=== PATIENT | female | born 2000 | race Caucasian/White ===

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

== ENCOUNTER 2020-03-02 11:06 | Inpatient (IN) | payer BC, MEDICAID, SELFPAY ==
[2020-03-02] VITALS (70 sets, daily range): BP systolic 88–172; BP diastolic 50–98; PULSE 90–137; RESP 16–22; TEMP 36–37.5; O2SAT 98–100; BMI 41.9
[2020-03-02] MEDS: lactated ringers 1,000 ML 999 ML IV ×2 (12:10→13:07)
[2020-03-02 12:38] LABS: Basophils # 0.1 10^3/uL (0.0-0.1); Basophils % 0.4 %; Eosinophils % 0.1 %; Hematocrit 42.8 % (37.0-47.0); Lymphocytes % 18.2 %; Mean Corpuscular HGB Conc 32.7 g/dL (30.0-36.0); Mean Corpuscular Hemoglobin 28.7 pg (28.0-34.0); Mean Corpuscular Volume 87.7 fL (81-99); Mean Platelet Volume 12.1 fL (7.4-10.4); Monocytes % 6.1 %; Neutrophils # 12.16 10^3/uL (1.8-8.0); Neutrophils % 74.8 %; Nucleated Red Blood Cells % 0 %; Platelet Count 262 10^3/cmm (130-400); Red Blood Count 4.88 10^6/uL (4.1-5.3); Red Cell Distribution Width 12.8 % (12.1-15.1); White Blood Count 16.3 10^3/uL (4.5-13.0)
--- NOTE | 2020-03-02 12:59 | P.ANESASSM_ITS ---
Pre-Anesthetic Assessment Pre-Anesthetic Assessment: Height/Weight: Height 1.66 m Weight 116.12 kg Temp Pulse BP 96.8 F L 101 H 136/84 03/02/20 11:31 03/02/20 12:51 03/02/20 12:51 Preop Diagnosis: labor Proposed Procedure: epidural Was Beta Angelica taken within 24 hours: N/A Last Intake: 19:00 Social: Social History: No alcohol and No tobacco Exam: Pre-Anes Outpt Exam: alert, oriented x 3, clear to auscultation bilaterally and regular rate & rhythm Airway: Submandibular: WNL Cervical ROM: WNL MP: 2 Dentition: Full Pulmonary: Pulmonary: None reported CV/HEM: CV/HEM: None reported : : None reported Hepatic: Hepatic: None reported GI: GI: GERD (with ) Metabolic: Metabolic: Morbid obesity Musc/skel: Musc/skel: None reported Neuropsych: Neuropsych: None reported Anesthetic Plan: ASA status: 2 Anesthesia: Regional (specify below) (epidural) Risk of > 500 ml blood loss (7ml/kg in children): No Meds/Allergies Current Medications: Current Medications Generic Name Dose Route Start Last Admin Trade Name Freq PRN Reason Stop Dose Admin Lactated Ringer's 1,000 mls @ 999 m ls/hr 03/02/20 11:46 03/02/20 12:10 Lactated Ringers IV 999 mls/hr .Q1H1M PRN Administration See label comment s PFSH Anesthesia PFSH: Social History (Updated 04/24/19 @ 12:55 by Yue Johnson LPN) Smoking and tobacco status: never smoked Alcohol intake: never Female Reproductive History: : 1 Data Anesthesia CBC & Chem 7: 03/02/20 12:05 Other Labs: Laboratory Results - last 48 hr 03/02/20 12:05 WBC 16.3 H RBC 4.88 Hgb 14.0 Hct 42.8 MCV 87.7 MCH 28.7 MCHC 32.7 RDW 12.8 Plt Count 262 MPV 12.1 H Neut % (Auto) 74.8 Lymph % (Auto) 18.2 Guthrie % (Auto) 6.1 Eos % (Auto) 0.1 Baso % (Auto) 0.4 Neut # (Auto) 12.16 H Lymph # (Auto) 3.0 Guthrie # (Auto) 1.0 H Eos # (Auto) 0.0 Baso # (Auto) 0.1 Nucleated RBC % (auto) 0 Nucleated RBCs # 0.0 Cardiac Studies: No Data to Display
--- NOTE | 2020-03-02 13:28 | ANES.PROC ---
Anesthesia Procedures Procedure/Date: 03/02/20 Epidural: Time Out Performed: Yes Consents Signed: Procedure Consent and NPO Consent Consent: requested by attending/covering physician, from patient, risks and benefits reviewed and patient agrees to proceed Lumbar Level: L3-L4 Epidural position: sitting Epidural procedure: sterile prep of area (betadine), 1% lidocaine to numb the area (3ml), 18 g needle, neg for paresthesia, test dose given, 1.5% xylocaine 1:200k epi (5ml), 0.2% Ropivacaine bolus ml (5ml), placed PCEA, no systemic response, sterile dressing applied, L.U.D. no apparent complications and 0.2% Ropiavacaine @ mls/hr (13ml/hr)
[2020-03-02] MEDS: dextrose 5%-lactated ringers 1,000 ML 125 ML IV (17:27)
[2020-03-02] MEDS: alum-mag-hydroxide-sime 30 mL UDC PO (18:14)
[2020-03-02] MEDS: oxytocin 30 UNIT/500 ML BAG 600 UNIT IV (19:25)
--- NOTE | 2020-03-02 20:32 | PM.DELIVERY ---
Delivery Note: Date of delivery: March 02, 2020 Pre-delivery diagnoses: 19-year-old 1 at 40 weeks estimated gestational age presenting in active labor Post-delivery diagnoses: Status post spontaneous vaginal delivery. Meconium was noted Procedure: Spontaneous vaginal delivery Op report anesthesia: Epidural Delivering Physician: Zhao Kiser Estimated blood loss (mL): 250 Delivery: DELIVERY: The patient progressed to complete without difficulty. She delivered a female with a weight of 6 pounds 11 ounces with Apgars of 8, 10. The baby was delivered from the JORDAN position. The baby was then completely delivered and placed on the mother's abdomen. The mouth and nose were suctioned. The cord was then clamped and cut. A nuchal cord x2. Meconium was noted. The placenta and 3 vessel cord were delivered intact shortly thereafter. The perineum and vaginal vault were carefully examined. No significant lacerations were noted. Both the mother and the baby were in stable condition. Post-Delivery Status: Good A&P Assessment and plan (1) 40 weeks gestation of : Status: Acute (2) Spontaneous vaginal delivery: Status: Acute Coding Level of Care Code Acute Medical Service Representative for Chg Fwd Diagnoses 40 weeks gestation of Z3A.40 Spontaneous vaginal delivery O80
[2020-03-02] MEDS: ibuprofen 800 mg tablet PO (21:45)
[2020-03-02] MEDS: lanolin oint 7 gm 1 APPLIC TOPICAL (21:46)
[2020-03-02] MEDS: benzocaine-menthol 78 gm Canister 1 SPRAY TOPICAL (21:47)
[2020-03-03] VITALS (10 sets, daily range): BP systolic 102–123; BP diastolic 50–67; PULSE 84–98; RESP 16; TEMP 36.2–36.7
--- NOTE | 2020-03-03 06:56 | P.DS_ITS ---
Discharge Providers HORSE TREKKING GUIDE Date of Admission: 03/02/20 11:06 Date of Discharge: 03/03/20 Attending Provider at Admission: Zhao Kiser MD Attending Provider at Discharge: Zhao Kiser MD Primary Care Provider: Lan Yeung MD Diagnoses at Discharge Discharge Diagnosis (1) 40 weeks gestation of : Status: Acute (2) Spontaneous vaginal delivery: Status: Acute Reason for Visit Reason for Visit: contractions Hospital Course Hospital Course The patient presented to the hospital in active labor. An amniotomy was performed. Labor was augmented with Pitocin. She then progressed to complete and had an unremarkable vaginal delivery. Her course has been unremarkable. Her bleeding has been minimal. She has breast-fed well. Her pain is been well controlled. Information Peripartum Data: Delivery Method: Vaginal Physical Exam Narrative: EXAM NARRATIVE: The patient is alert. She appears comfortable. Her heart has a regular rate and rhythm with no murmurs appreciated. Lungs are clear to auscultation bilaterally. Her fundus is firm and below the umbilicus. Urinary Catheter Management^: Salomon: Cath Placed During This Visit: yes Reason for Continuing Indwelling Catheter: Required Immobilization for Trauma or Surgery or Anesthesia Urinary Catheter Date of Insertion: 03/02/20 Urinary Catheter Time of Insertion: 13:40 Discharge Data Data Completed and Pending: Pending at discharge Category Date Time Status Hemagram Timed Lab 03/03/20 08:30 Uncollected Labs from last 24 hours 03/02/20 12:05 WBC 16.3 H RBC 4.88 Hgb 14.0 Hct 42.8 MCV 87.7 MCH 28.7 MCHC 32.7 RDW 12.8 Plt Count 262 MPV 12.1 H Neut % (Auto) 74.8 Lymph % (Auto) 18.2 Hamblen % (Auto) 6.1 Eos % (Auto) 0.1 Baso % (Auto) 0.4 Neut # (Auto) 12.16 H Lymph # (Auto) 3.0 Hamblen # (Auto) 1.0 H Eos # (Auto) 0.0 Baso # (Auto) 0.1 Nucleated RBC % (a uto) 0 Nucleated RBCs # 0.0 Vitals: Last Vital Signs Temp 98.1 F 03/03/20 05:31 Pulse 88 03/03/20 05:26 Resp 16 03/02/20 18:37 BP 119/56 03/03/20 05:26 Pulse Ox 100 03/02/20 13:56 Discharge Plan Discharge Patient Disposition: Home Condition: Stable Prescriptions: New ibuprofen 800 mg Tablet 800 mg PO TID Qty: 30 RF: 0 Continued [id number] 1 mg Tablet 1 tab PO DAILY RF: 0 Discontinued doxylamine-pyridoxine (vit B6) [Diclegis] 10-10 mg tablet,delayed release (DR/EC) See Rx Instructions PO .COMPLEX Qty: 60 RF: 0 metoclopramide HCl [Reglan] 10 mg tablet 10 mg PO Q6H PRN (Reason: nausea and vomiting) Qty: 20 RF: 0 Discharge Orders: Discharge Order (Routine); Ordered 03/03/20 Ordered By: Zhao Kiser Referrals: Zhao Kiser MD [Physician] - 6 Weeks Discharge Diet: Usual diet Discharge Activity: Limit activity as instructed Discharge Attestations HORSE TREKKING GUIDE Time Spent in Discharge Care*: less than 30 min Coding Level of Care Code Acute Allocation Analyst for Chg Fwd Diagnoses 40 weeks gestation of Z3A.40 Spontaneous vaginal delivery O80
[2020-03-03] MEDS: alum-mag-hydroxide-sime 30 mL UDC PO (07:18)
[2020-03-03] MEDS: ibuprofen 800 mg tablet PO ×2 (09:35→16:06)
[2020-03-03] MEDS: docusate sodium 100 mg Capsule PO (09:35)
[2020-03-03] MEDS: prenatal vitamin Capsule 1 CAP PO (09:35)
[2020-03-03 10:44] LABS: Hematocrit 34.3 % (37.0-47.0); Hemoglobin 11.1 g/dL (11.5-15.3); Mean Corpuscular HGB Conc 32.4 g/dL (30.0-36.0); Mean Corpuscular Hemoglobin 28.6 pg (28.0-34.0); Mean Corpuscular Volume 88.4 fL (81-99); Mean Platelet Volume 12.2 fL (7.4-10.4); Platelet Count 227 10^3/cmm (130-400); Red Blood Count 3.88 10^6/uL (4.1-5.3); Red Cell Distribution Width 12.9 % (12.1-15.1)
== END 2020-03-03 21:30 | disposition home or self-care (01) | DRG 807 ==
LOC: OPOB 11:06 → OBGYN 11:07
PROVIDERS: Admitting Provider Family Medicine; PCP Family Medicine; Visit Provider Family Medicine
DX: O77.0 Labor and delivery complicated by meconium in amniotic fluid (principal); Z37.0 Single live birth; O69.2XX0 Labor and delivery complicated by other cord entanglement, with compression, not applicable or unspecified; Z3A.40 40 weeks gestation of pregnancy
CPT/HCPCS: 12345; 36415; 51702; 59025; 59409; 85025; 85027; 99211; J2795

== ENCOUNTER 2020-04-19 12:16 | Outpatient (CLI) | payer BC, MEDICAID, SELFPAY | END 2020-04-19 12:17 | disposition home or self-care (01) | LOC: LAB 12:18 | PROVIDERS: PCP Family Medicine; Visit Provider Family Medicine | DX: K52.9 Noninfective gastroenteritis and colitis, unspecified (principal); R10.9 Unspecified abdominal pain | CPT/HCPCS: 87506 ==

== ENCOUNTER 2020-04-21 13:35 | Emergency (ER) | payer BC, MEDICAID, SELFPAY ==
[2020-04-21 13:45] VITALS: BP 152/57; PULSE 78; RESP 18; O2SAT 98; BMI 40.9
--- NOTE | 2020-04-21 14:07 | CTR_ITS ---
PROCEDURE INFORMATION: Exam: CT Abdomen And Pelvis With Contrast Exam date and time: 04/21/2020 6:18 PM Age: 19 years old Clinical indication: Abdominal pain; Generalized; Additional info: 1 month abd pain diffuse TECHNIQUE: Imaging protocol: Computed tomography of the abdomen and pelvis with contrast. Radiation optimization: All CT scans at this facility use at least one of these dose optimization techniques: automated exposure control; mA and/or kV adjustment per patient size (includes targeted exams where dose is matched to clinical indication); or iterative reconstruction. Contrast material: OMNIPAQUE 300; Contrast volume: 95 ml; Contrast route: INTRAVENOUS (IV); COMPARISON: US OB >= 14 weeks fetus [id number] 12/05/2019 8:35 AM RADIATION DOSE METRICS: Total DLP (mGy-cm): 1892.9 FINDINGS: Liver: Normal. No mass. Gallbladder and bile ducts: Normal. No calcified stones. No ductal dilation. Pancreas: Normal. No ductal dilation. Spleen: Normal. No splenomegaly. Adrenal glands: Normal. No mass. Kidneys and ureters: Normal. No hydronephrosis. Stomach and bowel: Colonic constipation is present. Appendix: No evidence of appendicitis. Intraperitoneal space: Unremarkable. No free air. No significant fluid collection. Vasculature: Unremarkable. No abdominal aortic aneurysm. Lymph nodes: Unremarkable. No enlarged lymph nodes. Urinary bladder: Unremarkable as visualized. Reproductive: Unremarkable as visualized. Bones/joints: Chronic defects are present through the bilateral L5 pars interarticularis. Resultant mild grade 1 spondylolisthesis at L5-S1 with moderate bilateral neural foraminal narrowing. There is a minimal disc bulge at the L4-L5 level. Soft tissues: Unremarkable. CT/CT abdomen pelvis w con* [id number] IMPRESSION: Colonic constipation is present. Radiation Dose CTDIVOL = (mGy): DLP = 1892.9 (mGy-cm)
--- NOTE | 2020-04-21 14:07 | XRR_ITS ---
PROCEDURE INFORMATION: Exam: XR Chest Exam date and time: 04/21/2020 2:15 PM Age: 19 years old Clinical indication: Other: Reduced breath sounds TECHNIQUE: Imaging protocol: XR of the chest Views: 1 view. COMPARISON: No relevant prior studies available. FINDINGS: Lungs: Unremarkable. No consolidation. Pleural spaces: Unremarkable. No pleural effusion. No pneumothorax. Heart/Mediastinum: Unremarkable. No cardiomegaly. Bones/joints: Unremarkable. XR/XR chest 1V portable [id number] IMPRESSION: No acute findings.
[2020-04-21] MEDS: sodium chloride 0.9% 1,000 ML 999 ML IV (14:28)
[2020-04-21 14:33] LABS: Basophils # 0.1 10^3/uL (0.0-0.1); Basophils % 0.7 %; Eosinophils # 0.3 10^3/uL (0.0-0.8); Eosinophils % 2.9 %; Hematocrit 40.4 % (37.0-47.0); Hemoglobin 12.8 g/dL (11.5-15.3); Lymphocytes # 3.5 10^3/uL (1.5-6.5); Lymphocytes % 38.9 %; Mean Corpuscular HGB Conc 31.7 g/dL (30.0-36.0); Mean Corpuscular Hemoglobin 27.9 pg (28.0-34.0); Mean Corpuscular Volume 88.2 fL (81-99); Mean Platelet Volume 10.9 fL (7.4-10.4); Monocytes # 0.7 10^3/uL (0.2-0.9); Monocytes % 7.8 %; Neutrophils # 4.39 10^3/uL (1.8-8.0); Neutrophils % 49.6 %; Nucleated Red Blood Cells % 0 %; Platelet Count 246 10^3/cmm (130-400); Red Blood Count 4.58 10^6/uL (4.1-5.3); Red Cell Distribution Width 13.2 % (12.1-15.1); White Blood Count 8.9 10^3/uL (4.5-13.0)
--- NOTE | 2020-04-21 14:33 | W.ED.ABDPA2 ---
HPI - Abdominal Pain General: Chief Complaint: Abdominal Pain Stated Complaint: ABD PAIN/DIARRHEA Time Seen by Provider: 04/21/20 13:49 History of Present Illness: HPI narrative: The patient is a 19-year-old female who comes to the ER complaining of diffuse abdominal pain and lower chest wall pain. Also diarrhea. The symptoms have been on and off for the past month and she has seen her primary care doctor about it who ordered stool testing and the results were not back yet. She was also seen at urgent care and given antibiotics for a potential colitis. She notices no difference since starting the antibiotics. She has no past medical history and had a vaginal delivery in February. Last menstrual period less than a week ago. MD elicited complaint: abdominal pain Pertinent past history: none Pain Consistency: constant Location: Diffuse Severity: moderate Quality: cramping Exacerbating factors: nothing Relieving factors: nothing Associated Symptoms: Reports GI cramping and diarrhea Review of Systems General: Reports: 10 or more systems reviewed and unremarkable except in HPI and below Const: Denies: fatigue Eyes: Denies: change in vision, blurry vision or eye redness ENMT: Denies: throat pain, swelling of lips/tongue, ear or mastoid pain or nasal congestion Card: Denies: chest pain, palpitations, irregular heart rhythm, edema, dyspnea on exertion or orthopnea Resp: Denies: dyspnea, productive cough or non-productive cough GI: Reports: abdominal pain, diarrhea and GI cramping : Denies: flank pain, difficulty voiding, urinary frequency or urinary urgency Musc: Denies: neck pain, back pain, extremity pain, joint pain, joint redness, limited range of motion or muscle weakness Skin/Breast: Denies: rash, pruritus, erythema, skin pain or skin tenderness Neuro: Denies: headache(s), numbness in extremities, weakness in extremities, sensory changes, difficulty walking, dizziness, confusion or Slurred speech present Psych: Denies: anxiety or depression Endo: Denies: polyuria All/Imm: Denies: urticaria, throat swelling or tongue swelling PFSH ED PFSH: Social History Smoking and tobacco status: never smoked Alcohol intake: never Physical Exam Const: COMMON NORMALS: no acute distress, average body habitus, patient oriented x3, no limitations, healthy appearing, alert and well nourished GENERAL APPEARANCE: cooperative, comfortable, well kempt and well developed ORIENTATION/CONSCIOUSNESS: Yes awake, Yes oriented to person, Yes oriented to place and Yes oriented to time HENMT: COMMON NORMALS: normocephalic, external ears normal and Normal external nose present HEAD & SCALP: normal to inspection and normocephalic NOSE: Normal external nose present EXTERNAL EAR: Yes external ears normal MOUTH: Normal oral and palatal mucosa present THROAT: posterior oropharynx normal Eye: COMMON NORMALS: Equal, round and reactive pupils present and EOMs intact bilaterally GENERAL EYE: appearance normal, both eyes and all related structures PUPIL: Yes Equal, round and reactive pupils present Neck/C-Spine: COMMON NORMALS: full ROM, no lymphadenopathy, no meningeal signs and no JVD GENERAL: Yes normal visual inspection Lymph: LYMPHATIC: no lymphadenopathy noted Chest: COMMONS NORMALS: normal inspection of the chest and normal palpation of entire chest wall Resp: COMMON NORMALS: normal respiratory effort, No retractions, No use of accessory muscles, clear to auscultation bilaterally and percussion normal EFFORT & INSPECTION: Yes able to speak in complete sentences AUSCULTATION: clear to auscultation bilaterally PERCUSSION: percussion normal Cardio: COMMON NORMALS: no JVD, regular rate, regular rhythm, S1 normal heart sound present, S2 normal heart sound present and Peripheral pulses 2+ throughout RATE: regular rate RHYTHM: regular rhythm HEART SOUNDS: S1 normal heart sound present and S2 normal heart sound present PERIPHERAL PULSES: Peripheral pulses 2+ throughout GI: COMMON NORMALS: Normal to inspection, nondistended, normoactive bowel sounds present, Soft to palpation, non-tender and no masses INSPECTION: Yes normal to inspection PALPATION: Yes Soft to palpation : COMMON NORMALS: Yes no CVA tenderness BLADDER/KIDNEY EXAM: Yes no CVA tenderness Back/Pelvis: COMMON NORMALS: no CVA tenderness, thoracic and lumbar spine normal to inspection, no thoracic nor lumbar tenderness and thoraco-lumbar ROM normal Extremity: COMMON NORMALS: normal to inspection, full ROM, capillary refill normal, no joint enlargement and no pedal edema GENERAL: Yes normal exam except as noted Neuro: COMMON NORMALS: patient oriented x3, CN's II-XII intact bilaterally, moves all extremities, no focal motor deficits, no sensory deficits noted and gait normal SENSORIUM/ORIENTATION: Yes alert, Yes oriented to person, Yes oriented to place and Yes oriented to time MENINGEAL SIGNS: Yes no meningeal signs Psych: COMMON NORMALS: mental status grossly normal, Normal thought process present, cooperative, normal affect and speech normal APPEARANCE: Yes well kempt ATTITUDE: Yes calm SPEECH: Yes normal speech THOUGHT PROCESS: Normal thought process present Skin: COMMON NORMALS: no rashes or lesions noted GENERAL SKIN EXAM: no rashes or lesions noted Course Vital Signs: Vital signs: Vital Signs Pulse Rate 78 04/21/20 17:00 Respiratory Rate 17 04/21/20 17:00 Blood Pressure 130/58 04/21/20 17:00 Pulse Oximetry 100 04/21/20 17:00 MDM - Abdominal Pain MDM Narrative: Medical decision making narrative: Patient comes to the ER with abdominal pain. Lipase is elevated. She is tolerating oral liquids and foods well. Discharged with Zofran. CT abdomen pelvis normal. Recommended she follow-up with her primary care physician to discuss other possible causes including her medications as well as get an ultrasound of her gallbladder at that time. ER with worsening symptoms Lab Data: Labs: Lab Results 04/21/20 04/21/20 04/21/20 Range/Units 14:20 14:20 15:52 WBC 8.9 (4.5-13.0) 10^3/ uL RBC 4.58 (4.1-5.3) 10^6/u L Hgb 12.8 (11.5-15.3) g/dL Hct 40.4 (37.0-47.0) % MCV 88.2 (81-99) fL MCH 27.9 L (28.0-34.0) pg MCHC 31.7 (30.0-36.0) g/dL RDW 13.2 (12.1-15.1) % Plt Count 246 (130-400) 10^3/c mm MPV 10.9 H (7.4-10.4) fL Neut % (Auto) 49.6 % Lymph % (Auto) 38.9 % Reagan % (Auto) 7.8 % Eos % (Auto) 2.9 % Baso % (Auto) 0.7 % Neut # (Auto) 4.39 (1.8-8.0) 10^3/u L Lymph # (Auto) 3.5 (1.5-6.5) 10^3/u L Reagan # (Auto) 0.7 (0.2-0.9) 10^3/u L Eos # (Auto) 0.3 (0.0-0.8) 10^3/u L Baso # (Auto) 0.1 (0.0-0.1) 10^3/u L Nucleated RBC % (a uto) 0 % Nucleated RBCs # 0.0 /100WBC Sodium 140 (136-145) mmol/L Potassium 4.4 (3.5-5.1) mmol/L Chloride 109 H (98-107) mmol/L Carbon Dioxide 24 (22-29) mmol/L Anion Gap 11.4 (5-19) BUN 21 H (6-20) mg/dL Creatinine 0.8 (0.5-0.9) mg/dL GFR Calculation 92.4 (90-130) mL/min Glucose 82 (65-115) mg/dL Calculated Osmolal ity 292 (285-295) mOsm/k g Calcium 9.3 (8.5-10.5) mg/dL Total Bilirubin 0.2 (0.15-1.2) mg/dL AST 19 (0-32) U/L ALT 22 (0-33) U/L Alkaline Phosphata se 94 (35-105) IU/L Total Protein 6.7 (6.6-8.7) g/dL Albumin 4.1 (3.5-5.2) g/dL Globulin 2.6 (1.3-4.6) g/dL Lipase 150 H (13-60) U/L HCG, Qual Negative (Negative) Urine Color (Yellow) Urine Appearance (CLEAR) Urine pH (5-7) Ur Specific Gravit y (1.005-1.030) Urine Protein (Negative) Urine Glucose (UA) (Normal) Urine Ketones (Negative) Urine Blood (Negative) Urine Nitrate (Negative) Urine Bilirubin (Negative) Prot Sulfosalicyli c Acd (Negative) Urine Urobilinogen (Negative) mg/dL Ur Leukocyte Marixa ase (Negative) Urine RBC (0-2) /hpf Urine WBC (0-5) /hpf Ur Squamous Epith Cells (0-5) /hpf Ur Transition Epit h Cell /hpf Amorphous Sediment Urine Bacteria (NONE) /hpf Urine Mucus /hpf 04/21/20 Range/Units 15:52 WBC (4.5-13.0) 10^3/ uL RBC (4.1-5.3) 10^6/u L Hgb (11.5-15.3) g/dL Hct (37.0-47.0) % MCV (81-99) fL MCH (28.0-34.0) pg MCHC (30.0-36.0) g/dL RDW (12.1-15.1) % Plt Count (130-400) 10^3/c mm MPV (7.4-10.4) fL Neut % (Auto) % Lymph % (Auto) % Reagan % (Auto) % Eos % (Auto) % Baso % (Auto) % Neut # (Auto) (1.8-8.0) 10^3/u L Lymph # (Auto) (1.5-6.5) 10^3/u L Reagan # (Auto) (0.2-0.9) 10^3/u L Eos # (Auto) (0.0-0.8) 10^3/u L Baso # (Auto) (0.0-0.1) 10^3/u L Nucleated RBC % (a uto) % Nucleated RBCs # /100WBC Sodium (136-145) mmol/L Potassium (3.5-5.1) mmol/L Chloride (98-107) mmol/L Carbon Dioxide (22-29) mmol/L Anion Gap (5-19) BUN (6-20) mg/dL Creatinine (0.5-0.9) mg/dL GFR Calculation (90-130) mL/min Glucose (65-115) mg/dL Calculated Osmolal ity (285-295) mOsm/k g Calcium (8.5-10.5) mg/dL Total Bilirubin (0.15-1.2) mg/dL AST (0-32) U/L ALT (0-33) U/L Alkaline Phosphata se (35-105) IU/L Total Protein (6.6-8.7) g/dL Albumin (3.5-5.2) g/dL Globulin (1.3-4.6) g/dL Lipase (13-60) U/L HCG, Qual (Negative) Urine Color Yellow (Yellow) Urine Appearance Hazy A (CLEAR) Urine pH 5 (5-7) Ur Specific Gravit y 1.025 (1.005-1.030) Urine Protein Neg (Negative) Urine Glucose (UA) Norm (Normal) Urine Ketones Negative (Negative) Urine Blood Neg (Negative) Urine Nitrate Negative (Negative) Urine Bilirubin Neg (Negative) Prot Sulfosalicyli c Acd Negative (Negative) Urine Urobilinogen Norm (Negative) mg/dL Ur Leukocyte Marixa ase 2+ H (Negative) Urine RBC None (0-2) /hpf Urine WBC 40-55 H (0-5) /hpf Ur Squamous Epith Cells 40-55 H (0-5) /hpf Ur Transition Epit h Cell 5-10 /hpf Amorphous Sediment Not Reportable Urine Bacteria 2+ H (NONE) /hpf Urine Mucus 1+ /hpf Discharge Plan Discharge Patient Disposition: Home Clinical Impression: Pancreatitis Condition: Stable Prescriptions: New ondansetron 4 mg tablet,disintegrating 4 mg PO Q8H PRN (Reason: Vomiting) 5 Days Qty: 15 RF: 0 No Action sertraline [Zoloft] 25 mg tablet 25 mg PO DAILY RF: 0 control 1 tab PO DAILY RF: 0 loperamide [Imodium A-D] 2 mg capsule 2 mg PO Q4H PRN (Reason: loose stool) Qty: 20 RF: 0 dicyclomine 20 mg tablet 20 mg PO TID PRN (Reason: cramping) Qty: 20 RF: 0 Pepto-Bismol 262 mg/15 mL Suspension 524 mg PO PRN RF: 0 Multivitamins 28 mg iron- 800 mcg Tablet 1 tab PO DAILY RF: 0 Discharge Orders: Discharge ED (Routine); Ordered 04/21/20 Ordered By: Nithin Angela Referrals: Zhao Kiser MD [Primary Care Provider] - Discharge Diet: Advance as tolerated Discharge Activity: Resume usual activity Patient Instructions: Pancreatitis (ED), Opioid Safety Activity Restrictions/Additional Instructions: You have acute pancreatitis. You are eating and drinking well. Please take Zofran to help you with your nausea and discussed this with your primary care physician later this week as you do not drink alcohol and do not have stones that are visible. Your doctor may order an ultrasound of your gallbladder during the visit and discuss your medications as a possible cause of your pancreatitis. Return to the ER with worsening symptoms. Coding Level of Care Code ED Certified Addiction Counselor for Chg Fwd Exam Comprehensive
[2020-04-21 14:57] VITALS: BP 127/50; RESP 18; O2SAT 99
[2020-04-21 15:56] LABS: Alanine Aminotransferase 22 U/L (0-33); Albumin Level 4.1 g/dL (3.5-5.2); Alkaline Phosphatase 94 IU/L (35-105); Anion Gap 11.4 (5-19); Aspartate Amino Transferase 19 U/L (0-32); Blood Urea Nitrogen 21 mg/dL (6-20); Calcium 9.3 mg/dL (8.5-10.5); Carbon Dioxide 24 mmol/L (22-29); Chloride 109 mmol/L (98-107); Globulin 2.6 g/dL (1.3-4.6); Glomerular Filtration Rate 92.4 mL/min (90-130); Glucose 82 mg/dL (65-115); Lipase 150 U/L (13-60); Osmolality Calculated 292 mOsm/kg (285-295); Potassium 4.4 mmol/L (3.5-5.1); Sodium 140 mmol/L (136-145); Total Bilirubin 0.2 mg/dL (0.15-1.2); Total Protein 6.7 g/dL (6.6-8.7)
[2020-04-21 15:59] VITALS: BP 123/65; RESP 18; O2SAT 100
[2020-04-21 17:00] VITALS: BP 130/58; PULSE 78; RESP 17; O2SAT 100
[2020-04-21 17:31] LABS: HCG Qualitative Urine. Negative (Negative)
[2020-04-21 17:36] LABS: Urine Appearance Hazy (CLEAR); Urine Color Yellow (Yellow); pH Urine 5 (5-7)
[2020-04-21 17:37] LABS: Add Urine Microscopic? YES; Bilirubin Urine Neg (Negative); Blood Urine Neg (Negative); Glucose Urine UA Norm (Normal); Ketones Urine Negative (Negative); Leukocyte Esterase Urine 2+ (Negative); Nitrate Urine Negative (Negative); Protein Urine Neg (Negative); Specific Gravity, Urine 1.025 (1.005-1.030); Sulfosalicylic Acid Urine Negative (Negative); Urobilinogen Urine Norm (Negative)
[2020-04-21 17:39] LABS: Bacteria Urine 2+ /hpf; WBC Urine 40-55 /hpf (0-5)
[2020-04-21 17:40] LABS: Add Urine Culture? No; Mucus Urine 1+ /hpf
[2020-04-21 17:41] LABS: Squamous Epithelial Cell Urine 40-55 /hpf (0-5)
[2020-04-21] MEDS: iohexol 300 mg/mL 100 mL Btl IV (18:18)
[2020-04-21 19:01] VITALS: BP 108/50; PULSE 69; RESP 20; O2SAT 100
== END 2020-04-21 19:02 | disposition home or self-care (01) ==
PROVIDERS: Emergency Provider Family Medicine; PCP Family Medicine
DX: K85.90 Acute pancreatitis without necrosis or infection, unspecified (principal)
CPT/HCPCS: 71045; 74177; 80053; 81001; 81025; 83690; 85025; 96360; 99283; J7030; Q9967

== ENCOUNTER → 2024-07-23 12:28 | Outpatient (BNVA) | payer BC, MEDICAID, SELFPAY | PROVIDERS: PCP Family Medicine; Visit Provider Emergency Medicine | DX: Z20.818 Contact with and (suspected) exposure to other bacterial communicable diseases (principal) | CPT/HCPCS: 87071; 87880 ==